=== PATIENT | female | born 1980 | race Caucasian/White ===

== ENCOUNTER 2017-12-26 15:08 | Emergency (ER) | payer MEDICAID ==
[~2017-12-26] VITALS: Ht 154.9 cm; Wt 103.4 kg
[2017-12-26 15:25] VITALS: Ht 154.9 cm; Wt 103.4 kg
[2017-12-26 16:52] VITALS: BP 151/73
[2017-12-26 17:31] LABS: microscopic required? YES; urine erythrocyte 3+ (NEGATIVE)
== END 2017-12-26 17:45 | disposition home or self-care (01) ==
LOC: ED 15:08
PROVIDERS: Emergency Medicine
DX: N39.0 Urinary tract infection, site not specified (principal); Z90.49 Acquired absence of other specified parts of digestive tract
CPT/HCPCS: 87491; 87591; J0696

== ENCOUNTER 2019-03-07 17:34 | Emergency (ER) | payer MEDICAID ==
[~2019-03-07] VITALS: Ht 154.9 cm; Wt 105.7 kg
[2019-03-07 18:04] VITALS: Ht 154.9 cm; Wt 105.7 kg
[2019-03-07 18:37] LABS: CALCIUM 9.4 mg/dL (8.5-10.1); CARBON DIOXIDE 29.1 mmol/L (21-32); CHLORIDE SERUM 105 mmol/L (98-107); CREATININE SERUM 0.7 mg/dL (0.6-1.0); GFR1 > 60 mL/min; GLUCOSE SERUM 103 mg/dL (74-106); POTASSIUM SERUM 4.2 mmol/L (3.5-5.1); SODIUM SERUM 145 mmol/L (136-145)
[2019-03-07 18:41] LABS: BASOPHIL % 0.4 % (0-2); PLATELET COUNT 308 x10^3mcL (130-400); RED CELL DISTRIBUTION WIDTH 13.2 % (11.5-14.5)
[2019-03-07 18:42] LABS: ALBUMIN 3.7 g/dL (3.4-5.0); ALKALINE PHOSPHATASE 80 U/L (46-116); ALT/SGPT 42 U/L (14-59); AMYLASE 31 U/L (25-115); AST/SGOT 17 U/L (15-37); BILIRUBIN TOTAL 0.26 mg/dL (0.20-1.00); LIPASE 112 IU/L (73-393); TOTAL PROTEIN, SERUM 7.8 g/dL (6.4-8.2)
[2019-03-07 21:38] VITALS: BP 149/79
== END 2019-03-07 21:38 | disposition home or self-care (01) ==
LOC: ED 17:34
DX: N39.0 Urinary tract infection, site not specified (principal)
CPT/HCPCS: 36415; J7030

== ENCOUNTER 2019-07-23 10:18 | Emergency (ER) | payer MEDICAID ==
[~2019-07-23] VITALS: Ht 154.9 cm; Wt 107.0 kg
[2019-07-23 10:21] VITALS: Ht 154.9 cm; Wt 107.0 kg
[2019-07-23 11:37] VITALS: BP 116/76
== END 2019-07-23 11:37 | disposition home or self-care (01) ==
LOC: ED 10:18
DX: N39.0 Urinary tract infection, site not specified (principal); Z90.49 Acquired absence of other specified parts of digestive tract; Z90.89 Acquired absence of other organs

== ENCOUNTER 2019-12-12 17:46 | Emergency (ER) | payer MEDICAID ==
[~2019-12-12] VITALS: Ht 157.5 cm; Wt 89.8 kg
[2019-12-12 17:55] VITALS: Ht 157.5 cm; Wt 89.8 kg
[2019-12-12 18:26] VITALS: BP 139/68
== END 2019-12-12 18:26 | disposition home or self-care (01) ==
LOC: ED 17:46
DX: J02.9 Acute pharyngitis, unspecified (principal); Z90.89 Acquired absence of other organs; Z90.49 Acquired absence of other specified parts of digestive tract